=== PATIENT | male | born 1945 | race Caucasian/White ===

== ENCOUNTER → 2020-01-23 | Outpatient (CLI) | payer MEDICARE, OTHER ==
--- NOTE | 2020-01-24 11:41 | SLEEP ---
DATE OF STUDY: 01/23/2020 SLEEP STUDY REFERRING PHYSICIAN: SHERIN Knutson The patient is 74 years old, who weighs 218 pounds with a BMI of 39. The patient's [place] score was 15. The patient underwent split night study performed at [facility]. During the night study, the patient spent 424 minutes in bed and slept for 307 minutes with a sleep efficiency of 72%. Sleep latency was 26 minutes with a REM latency of 227 minutes. Sleep architecture showed increased stage 1 and stage 2 sleep, absent slow wave and normal REM sleep. During the initial diagnostic portion of the study, the patient slept for 84 minutes. During that time, the patient had 1 obstructive apnea, no mixed or central apneas and 48 hypopneas. The patient's AHI was 35 per hour with a supine AHI of 85 per hour. The patient did not have REM sleep during the diagnostic portion. EKG monitoring revealed normal sinus rhythm, average heart rate of 72 beats per minute, no sustained arrhythmias observed. Nocturnal oximetry study revealed a mean oxygen saturation of 90% with the lowest of 81%. 23% of the time, oxygen saturation remained between 80% and 89%. No significant PLMs seen. The patient was started on CPAP at 5 cm of water and titrated up to 7 cm of water. At the final pressure, the patient slept for 201 minutes. The patient had supine as well as REM sleep. The patient's AHI was reduced to 2 per hour and oxygen saturation remained above 88%. IMPRESSION: 1. Severe obstructive sleep apnea at an AHI of 35 per hour with a supine AHI of 85 per hour. 2. Nocturnal hypoxia secondary to obstructive sleep apnea, but resolved with CPAP. 3. No significant periodic limb movements. RECOMMENDATIONS: 1. CPAP at 7 cm of water completely eliminated the patient's sleep apnea, should be used on a nightly basis. The patient used large-sized nasal mask. 2. Follow up in 4-6 weeks to assess compliance with CPAP and to document clinical improvement. 3. Weight loss is strongly advised. 4. 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 5. Cautioned regarding driving until symptoms of sleep apnea resolves with the use of CPAP. ARCELIA MARQUES MD DR: GARRICK/sumanth JOB#: [id number] / [id number] JORGE Merrill STEVEN DO
== END | disposition home or self-care (01) ==
LOC: SLPLAB 19:08
PROVIDERS: ATTEND Otolaryngology
DX: G47.33 Obstructive sleep apnea (adult) (pediatric) (principal)
CPT/HCPCS: 95810